=== PATIENT | male | born 1965 | race Caucasian/White ===

== ENCOUNTER 2018-04-03 10:39 | Inpatient (IN) | payer BC ==
[~2018-04-03] VITALS: Ht 185.4 cm; Wt 131.5 kg
--- NOTE | 2018-04-03 10:45 | NUR ---
PT AMBULATES TO BED 11
[2018-04-03 10:50] VITALS: BP 177/93
--- NOTE | 2018-04-03 11:00 | NUR ---
c/o intermittent right arm pain/numbness and sob x 2 wks adds dizziness upon getting up. DENIES N/V/D; SKIN IS PINK/WARM/DRY; AAOX4 WITH EVEN AND STEADY GAIT; LUNGS CLEAR BL; HR EVEN AND REGULAR; PT DENIES ANY FEVER, CP, SOB, OR COUGH AT THIS TIME; PATIENT STATES PAIN OF 0/10 AT THIS TIME; VSS; PATIENT POSITIONED FOR COMFORT; HOB ELEVATED; BEDRAILS UP X2; BED DOWN. ER MD MADE AWARE OF PT STATUS. family at bedside.
[2018-04-03] MEDS ORDERED: NACL 0.9% 1,000 ML IV SCH (11:33)
[2018-04-03 12:20] LABS: BASOPHILS # (AUTO) 0.1 K/uL (0.00-0.22); BASOPHILS % (AUTO) 0.8 % (0.0-2.0); EOSINOPHILS # (AUTO) 0.1 K/uL (0-0.4); EOSINOPHILS % (AUTO) 2.3 % (0.0-4.0); HEMATOCRIT 45.1 % (36-52); HEMOGLOBIN 15.6 g/dL (12.0-18.0); LYMPHOCYTES # (AUTO) 1.8 K/uL (2.0-11.5); MEAN CORPUSCULAR HEMOGLOBIN 30 pg (27-31); MEAN CORPUSCULAR HGB CONC 35 g/dL (33-37); MEAN CORPUSCULAR VOLUME 85.3 fL (80-94); MONOCYTES # (AUTO) 0.4 K/uL (0.8-1.0); MONOCYTES % (AUTO) 6.9 % (1.7-9.3); NEUTROPHILS # (AUTO) 3.9 K/uL (1.8-7.7); PLATELET COUNT (AUTO) 141 K/uL (140-450); RED BLOOD CELL COUNT(AUTO) 5.28 MIL/uL (4.20-6.10); RED CELL DISTRIBUTION WIDTH 13.5 % (11.6-13.7); WHITE BLOOD COUNT (AUTO) 6.4 K/uL (4.8-10.8)
[2018-04-03 12:54] LABS: ANION GAP 11.6 (8-16); CARBON DIOXIDE 29.4 mmol/L (21-32); CHLORIDE 102 mmol/L (98-107); CREATININE 0.9 mg/dL (0.7-1.3); GFR ARICAN-AMERICAN 115 mL/min (>90); GLUCOSE 192 mg/dL (74-106); SODIUM SERUM 139 mmol/L (136-145); UREA NITROGEN, BLOOD 12 mg/dL (7-18)
[2018-04-03 12:59] LABS: ALBUMIN 3.9 g/dL (3.4-5.0); AMYLASE 27 U/L (25-115); ASPARTATE AMINOTRANSFERASE 20 U/L (15-37); LIPASE 120 U/L (73-393); MAGNESIUM 1.8 mg/dL (1.8-2.4); PROTHROMBIN TIME 10.3 secs (10.8-13.4); TOTAL BILIRUBIN 0.6 mg/dL (0.0-1.0); URIC ACID 5.2 mg/dL (2.6-7.2)
--- NOTE | 2018-04-03 13:00 | NUR ---
LUNCH TRAY SERVED TO PT, PT EAT 70 % OF FOOD. PT STATED NO NUMBNESS TO RIGHT EXTREMITIES AT THIS MOMENT.
[2018-04-03 13:06] LABS: ACETONE, SERUM NEGATIVE (NEGATIVE)
--- NOTE | 2018-04-03 14:13 | NUR ---
RECEIVED BEDSIDE REPORT FROM ER NURSE. PATIENT IS AWAKE, ALERT AND ORIENTEDX4. NO SIGNS OF DISTRESS ON ROOM AIR. SKIN IS INTACT. IV ON L HAND 20G INFUSING NS AT 80ML/HR. IV IS CLEAN, DRY AND INTACT. FALL RISK PROTOCOL IN PLACE. NO YELLOW GOWNS AT THIS TIME. PATIENT ABLE TO AMBULATE FINE BUT CC IS DIZZINESS AND DX TIA. BED IN LOW POSITION. CALL LIGHT WITHIN REACH. MRSA SWAB DONE. TELE MONITOR IN PLACE. B/P IS HIGH, RR IS HIGH. PATIENT COMPLAINS OF GETTING SOB WHEN AMBULATING. WILL CONTINUE TO MONITOR THE PATIENT.
[2018-04-03] MEDS ORDERED: LORazepam 2 MG/ML VIAL IM/IVP PRN (14:40)
[2018-04-03] MEDS ORDERED: ONDANSETRON 4 MG/2 ML VIAL IM/IVP PRN (14:40)
[2018-04-03] MEDS ORDERED: DOCUSATE SODIUM 100 MG GELCAP PO PRN (14:40)
[2018-04-03] MEDS ORDERED: ACETAMINOPHEN 325 MG TAB PO PRN (14:40)
[2018-04-03] MEDS ORDERED: ZOLPIDEM 5 MG TAB PO PRN (14:40)
--- NOTE | 2018-04-03 15:00 | NUR ---
PT RESTING IN BED, DAUGHTER AT BEDSIDE. MADE PT AWARE HE WILL BE ADMITTED TO FLOOR FOR OBSERVATION.
[2018-04-03 16:04] LABS: PHOSPHORUS 2.9 mg/dL (2.5-4.9); THYROID STIMULATING HORMONE 1.62 uIU/mL (0.34-3.74)
[2018-04-03] MEDS ORDERED: DEXTROSE 50% 50 ML SYR IVP PRN (16:10)
--- NOTE | 2018-04-03 16:10 | NUR ---
PT AWAKE, ALERT. ON ROOM AIR, NO S/S OF RESPIRATORY DISTRESS NOTED. TRANSFERRED PT TO 105 A VIA GURNEY ACCOMAPNIED WITH RN AND EMT, REPORT CHRIST TO JONNY GRANT. DAUGHTER AT BEDSIDE. ALL PERSONALE BELONGINGS WITH PT.
[2018-04-03] MEDS ORDERED: MECLIZINE 25 MG TAB PO PRN (16:15)
[2018-04-03 16:30] VITALS: BP 163/81
[2018-04-03] MEDS ORDERED: amLODIPine 5 MG TAB PO SCH (16:30)
[2018-04-03 16:40] LABS: APPEARANCE,URINE CLEAR (CLEAR); BILIRUBIN,URINE NEGATIVE (NEGATIVE); BLOOD, URINE NEGATIVE (NEGATIVE); COLOR,URINE YELLOW (YELLOW); LEUKOCYTE ESTERASE ,URINE NEGATIVE (NEGATIVE); NITRITE, URINE NEGATIVE (NEGATIVE); PH,URINE 5.5 (5.0-9.0); UGLUCOSE 3+ (NEGATIVE)
[2018-04-03 16:41] LABS: BARBITURATE, URINE NEG. ng/ml (NEG <=200); BENZODIAZEPINE, URINE NEG. ng/mL (NEG <=200); CANNABINOID, URINE NEG. ng/mL (NEG <=50); COCAINE, URINE NEG. ng/mL (NEG <=300); OPIATE, URINE NEG. ng/mL (NEG <=2000); PHENCYCLIDINE SCREEN,URINE NEG. ng/mL (NEG <=25)
[2018-04-03] MEDS: NACL 0.9% 1,000 ML IV SCH (17:23)
[2018-04-03] MEDS: BLOOD GLUCOSE MONITORING 1 DEV DEV FS SCH ×2 (17:31→20:18)
--- NOTE | 2018-04-03 17:35 | NUR ---
ADMINISTERED MEDS. PATIENT HAS NO COMPLAINTS AT THIS TIME. IV IS CLEAN, DRY AND INTACT. BED IN LOW POSITION. CALL LIGHT WITHIN REACH.
[2018-04-03] MEDS: INSULIN LISPRO SLIDING SCALE 100 UNITS/ML VIAL SUBQ PRN (17:37)
--- NOTE | 2018-04-03 19:30 | NUR ---
GAVE BEDSIDE REPORT TO CREW SUPERVISOR NURSE. PATIENT ENDORSED IN STABLE CONDITION. CREW SUPERVISOR NURSE TO DO THE ORTHOSTATIC VITALS.
--- NOTE | 2018-04-03 19:31 | NUR ---
RECEIVED REPORT FROM DAY SHIFT RN FOR CONTINUITY OF CARE. PT IS A/OX4, ON ROOM AIR. PT IS ABLE TO MAKE NEEDS KNOWN, ABLE TO FOLLOW COMMANDS. RESPIRATIONS EVEN AND UNLABORED AT THE MOMENT. PT SKIN IS INTACT. PT HAS 20G IV TO LEFT HAND, ASYMPTOMATIC, INTACT AND PATENT. DISCUSSED PLAN OF CARE WITH PT AND FAMILY, FAMILY VERBALIZED UNDERSTANDING. BLOOD PRESSURE HIGH, SPOKE TO DR SHERMAN ABOUT IT AND HE WILL ORDER MEDICATION FOR IT. OTHER VITAL SIGNS WITHIN NORMAL LIMITS. PT STABLE, NO SIGNS OF DISTRESS NOTED AT THIS TIME. BED IN LOWEST POSITION, BED ALARM ON. CALL LIGHT WITHIN REACH, WILL CONTINUE TO MONITOR.
[2018-04-03] MEDS ORDERED: amLODIPine 5 MG TAB PO ONE (19:55)
[2018-04-03 20:00] VITALS: BP 169/91
[2018-04-03 20:01] VITALS: BP 175/98
[2018-04-03 20:02] VITALS: BP 194/82
[2018-04-03] MEDS: hydrALAZINE 20 MG/ML VIAL IVP PRN (20:17)
--- NOTE | 2018-04-03 20:18 | NUR ---
SPOKE TO DR SHERMAN ABOUT PT BLOOD PRESSURE. ORDERED HYDRALAZINE PRN FOR SBP ABOVE 160. ADMINISTERED 5MG OF HYDRALAZINE, PT TOLERATED WELL. PT BLOOD SUGAR IS 193 BUT PT REFUSES INSULIN COVERAGE DUE TO JUST HAVING DINNER AND ALSO BECAUSE PT HAD INSULIN EARLIER.
--- NOTE | 2018-04-03 22:20 | NUR ---
PT WANTING TO LEAVE AMA. DR SHERMAN SPOKE TO PT AND PT SAID HE DECIDED TO STAY FOR NOW. PT STATES HE IS UNSURE IF HE WILL LEAVE OR STAY BUT HE SAID "I PROMISE I WILL NOT LEAVE WITHOUT TELLING YOU AND SIGNING THE AMA PAPER."
[2018-04-04] VITALS: BP 155/91
--- NOTE | 2018-04-04 | NUR ---
VITAL SIGNS WITHIN NORMAL LIMITS. PT STABLE, NO SIGNS OF DISTRESS NOTED AT THIS TIME. BED IN LOWEST POSITION, BED ALARM ON. CALL LIGHT WITHIN REACH, WILL CONTINUE TO MONITOR.
--- NOTE | 2018-04-04 02:44 | NUR ---
PT RESTING, STABLE, NO SIGNS OF DISTRESS NOTED AT THIS TIME. BED IN LOWEST POSITION, BED ALARM ON. CALL LIGHT WITHIN REACH, WILL CONTINUE TO MONITOR.
[2018-04-04 04:00] VITALS: BP 130/72
--- NOTE | 2018-04-04 06:15 | NUR ---
PT REFUSED INSULIN COVERAGE, BS 164.
[2018-04-04 07:11] LABS: EOSINOPHILS # (AUTO) 0.1 K/uL (0-0.4); EOSINOPHILS % (AUTO) 0.9 % (0.0-4.0); HEMATOCRIT 43.2 % (36-52); LYMPHOCYTES # (AUTO) 1.4 K/uL (2.0-11.5); LYMPHOCYTES % (AUTO) 19.4 % (20.5-51.1); MEAN CORPUSCULAR HEMOGLOBIN 30 pg (27-31); MEAN CORPUSCULAR HGB CONC 35 g/dL (33-37); MEAN CORPUSCULAR VOLUME 85.6 fL (80-94); MONOCYTES # (AUTO) 1.7 K/uL (0.8-1.0); MONOCYTES % (AUTO) 23.1 % (1.7-9.3); NEUTROPHILS # (AUTO) 4.1 K/uL (1.8-7.7); NEUTROPHILS % (AUTO) 56.6 % (42.2-75.2); PLATELET COUNT (AUTO) 135 K/uL (140-450); RED BLOOD CELL COUNT(AUTO) 5.04 MIL/uL (4.20-6.10); RED CELL DISTRIBUTION WIDTH 13.6 % (11.6-13.7); WHITE BLOOD COUNT (AUTO) 7.3 K/uL (4.8-10.8)
--- NOTE | 2018-04-04 07:24 | NUR ---
ENDORSED PT TO DAY SHIFT RN FOR CONTINUITY OF CARE. PT IN STABLE CONDITION.
--- NOTE | 2018-04-04 07:25 | NUR ---
RECEIVED REPORT FROM ROCKET MOTOR MECHANIC NURSE NORMA AT BEDSIDE FOR CONTINUITY OF CARE. PT IS AWAKE AND ORIENTED X4. INTRODUCED SELF AND UPDATED BOARD. PT DENIES PAIN. NO VISUAL DISTURBANCES REPORTED BY PT. LUNG SOUNDS CLEAR ON AUSCULTATION. O2 SAT 96% ON RA. NO SOB, NO COUGH. SKIN INTACT. IV TO L HAND 20G WITH NS AT 20ML/HR. PT UP AND EATING BREAKFAST. CALL LIGHT WITHIN REACH. BED IN LOW POSITION, WHEELS LOCKED, WILL CONTINUE TO MONITOR.
[2018-04-04] MEDS: BLOOD GLUCOSE MONITORING 1 DEV DEV FS SCH ×4 (07:31→21:06)
[2018-04-04 07:54] LABS: MAGNESIUM 2.1 mg/dL (1.8-2.4); PHOSPHORUS 3.2 mg/dL (2.5-4.9)
[2018-04-04 07:55] LABS: ANION GAP 14.1 (8-16); CARBON DIOXIDE 27.5 mmol/L (21-32); CREATININE 0.7 mg/dL (0.7-1.3); POTASSIUM 3.6 mmol/L (3.5-5.1)
[2018-04-04 08:00] VITALS: BP 152/82
[2018-04-04 08:22] LABS: T4 (THYROXINE) 5.5 ug/dL (4.5-12.0)
--- NOTE | 2018-04-04 09:15 | NUR ---
REPORTED TO DR. ADORNO PT ON TELE CONVERTED TO A FIB. ORDERED EKG. PT AWAKE AND NO COMPLAINTS AT THIS TIME.
[2018-04-04 09:26] LABS: CHOL/HDL RATIO 4.9 (1-4.5)
[2018-04-04] MEDS: amLODIPine 5 MG TAB PO SCH (10:00)
[2018-04-04] MEDS: INSULIN LANTUS 100 UNITS/ML 10 ML VIAL SUBQ SCH (10:05)
--- NOTE | 2018-04-04 10:05 | NUR ---
ADMINISTERED SCHEDULED MEDS. EDUCATED PT ON BP MONITORING AND CONTROL WITH MEDS AND GLYCEMIC CONTROL WITH LANTUS. PT VERBALIZED UNDERSTANDING AND TOLERATED MEDS WELL. PT'S AT BEDSIDE. PT DENIES PAIN. ASKED IF PT NEEDED ANYTHING. PT STATED "NO." CALL LIGHT WITHIN REACH. WILL CONTINUE TO MONITOR.
--- NOTE | 2018-04-04 10:42 | NUR ---
PATIENT HAS BEEN SCREENED AND CATEGORIZED HIGH NUTRITION RISK. PATIENT WILL BE SEEN WITHIN 1-2 DAYS OF ADMISSION. 04/04/18 04/05/[address]
--- NOTE | 2018-04-04 11:36 | NUR ---
CM NOTE PER BYERS SMASHER HAND JULIÁN, PATIENT HAS [facility] AND REVIEWS SHOULD ONLY BE SENT TO [facility]. CALLED VIDHI OF [facility] PH# [phone] TO CONFIRM AND INFORMED REGTX OF THE ORDER FOR MRI OF BRAIN. PER VIDHI, THERE IS NO ASSIGNED CM AT THIS TIME BUT TO SEND REVIEWS TO [facility] FAX# [phone]. INITIAL REVIEW AND ORDER FOR MRI OF BRAIN FAXED TO [facility] FAX# [phone].
[2018-04-04] MEDS: INSULIN LISPRO SLIDING SCALE 100 UNITS/ML VIAL SUBQ PRN (11:59)
[2018-04-04 12:00] VITALS: BP 154/80
--- NOTE | 2018-04-04 12:20 | NUR ---
CALLED DR. ADORNO REGARDING MRI ORDER BECAUSE CANNOT BE DONE HERE. SAID PLANNING TO TRANSFER PT FOR MRI. SPOKE WITH RADIOLOGY AND INFORMED THEM.
--- NOTE | 2018-04-04 13:26 | NUR ---
CM NOTE CALLED [facility] TO FOLLOW UP ON THE ASSIGNED CM AND ORDER FOR MRI OF BRAIN. PER ARLEEN OF [facility]# [phone], CASE HAS NOT BEEN OPENED YET AND TO CALL AGAIN AT A LATER TIME TO FOLLOW UP. I INFORMED HER THAT I AM FOLLOWING UP ON THE ORDER FOR MRI OF THE BRAIN. CALLED CHRISTIE OF [facility]# [phone] WHO STATED THAT SHE DOES NOT KNOW WHO THE ASSIGNED CM YET AT THIS TIME BUT TO CALL [facility] ANSWERING SERVICE # [phone]. CALLED [facility] ANSWERING SERVICE # [phone] AND SPOKE WITH GILDARDO WHO SAID THEY WILL TRANSFER PATIENT TO ONE OF THEIR CONTRACTED FACILITIES. I GAVE HER THE NUMBER TO THE NURSING STATION WHERE PATIENT IS IN CASE IT HAPPENS AT A LATER TIME. CHARGE NURSE HARJIT AND DR. KYREE MORILLO.
--- NOTE | 2018-04-04 14:21 | NUR ---
CM NOTE PER DR. ADORNO, PATIENT WAS INFORMED THAT HIS INSURANCE WANTS HIM TO BE TRANSFERRED TO ONE OF THEIR CONTRACTED FACILITIES AND PATIENT IS AGREEABLE. SPOKE WITH PAO FINLEY PH# [phone] AND SHE SAID SHE IS ARRANGING THE TRANSPORTATION AND TRANSFER OF PATIENT TO ONE OF THEIR CONTRACTED FACILITIES. PER JOE, SHE IS STILL LOOKING FOR A BED IN ONE OF THEIR CONTRACTED FACILITIES WHERE THEY HAVE A NEUROLOGIST INCLUDING [facility]. SHE CONFIRMED THAT SHE HAS RECEIVED THE CLINICAL UPDATES ON THE PATIENT. I GAVE MALIA THE NUMBER FOR DOCTOR TO DOCTOR REPORT AND THE NUMBER TO THE NURSING STATION WHERE PATIENT IS IN CASE THE TRANSFER HAPPENS AT A LATER TIME. CHARGE NURSE HARJIT AND DR. ADORNO AWARE.
[2018-04-04] MEDS: NACL 0.9% 1,000 ML IV SCH (15:00)
[2018-04-04 16:00] VITALS: BP 150/80
--- NOTE | 2018-04-04 16:50 | NUR ---
SPOKE WITH PT AND TRANSFER CAR OPERATOR DRIER FROM [facility] ON PHONE REGARDING TRANSFER. TOLD THEM WAITING ON BED FROM FACILITY AND WILL LET PT KNOW ONCE TRANSFER IS SET UP.
--- NOTE | 2018-04-04 19:30 | NUR ---
ENDORSED PT TO GRINDER NEEDLE TIP NURSE NORMA AT BEDSIDE FOR CONTINUITY OF CARE. PT IN STABLE CONDITION.
[2018-04-04 20:00] VITALS: BP 125/73
--- NOTE | 2018-04-04 21:07 | NUR ---
PT BLOOD SUGAR IS 253, BUT PT REFUSES INSULIN COVERAGE BECAUSE PT STATES HE JUST HAD DINNER AND HE HAD TAKEN INSULIN TWICE BEFORE TODAY AND HE DOES NOT NORMALLY TAKE INSULIN.
--- NOTE | 2018-04-04 21:20 | NUR ---
ALBACORE FISHING BOAT CREWMAN ANGELES FROM [facility] CALLED TO LET US KNOW THEY ARE MOVING THINGS AROUND TO TRY TO GET A BED FOR PT. HE SAID THERE IS A CHANCE PT MIGHT BE TRANSFERRED TODAY AND WANTED TO KNOW IF PT IS ON TELE MONITOR AND IF PT NEEDED BLS OR ACLS TRANSPORT. ANGELES ALSO SAID TO MAKE SURE DISCHARGE ORDER INCLUDED "TRANSFER TO HIGHER LEVEL OF CARE FOR MRI" OR " OK TO TRANSFER TO ,CONTRACTED FACILITY."
--- NOTE | 2018-04-04 21:51 | NUR ---
OBTAINED ORDER FOR PT TO SHOWER PER PT REQUEST. PT IS NOW IN SHOWER.
--- NOTE | 2018-04-04 22:23 | NUR ---
ANGELES FROM [facility] CALLED AGAIN. TURNS OUT PT IS NOT WITH [facility], PT IS WITH [facility]. MAP DRAFTER SHOULD FOLLOW UP TOMORROW MORNING.
[2018-04-05] VITALS: BP 139/77
--- NOTE | 2018-04-05 | NUR ---
VITAL SIGNS WITHIN NORMAL LIMITS. PT STABLE, NO SIGNS OF DISTRESS NOTED AT THIS TIME. BED IN LOWEST POSITION, BED ALARM ON. CALL LIGHT WITHIN REACH, WILL CONTINUE TO MONITOR
--- NOTE | 2018-04-05 02:21 | NUR ---
PT STABLE, NO SIGNS OF DISTRESS NOTED AT THIS TIME. BED IN LOWEST POSITION, BED ALARM ON. CALL LIGHT WITHIN REACH, WILL CONTINUE TO MONITOR.
[2018-04-05 04:00] VITALS: BP 148/86
[2018-04-05] MEDS: BLOOD GLUCOSE MONITORING 1 DEV DEV FS SCH ×3 (06:36→16:47)
--- NOTE | 2018-04-05 06:36 | NUR ---
PT REFUSED INSULIN FOR BS 178.
--- NOTE | 2018-04-05 07:27 | NUR ---
RECEIVED REPORT FROM NIGHTSHIFT NURSE AT BEDSIDE. PATIENT IS ASLEEP AT THIS TIME IN LEFT LATERAL POSITION. PATIENT AROUSABLE TO NAME. RESPIRATIONS ARE EVEN AND UNLABORED. NO SIGNS OF PAIN AT THIS TIME. PATIENT HAS NO IV ACCESS. LOWERED BED OF PATIENT TO LOWEST SETTING. CALL LIGHT WITHIN REACH OF PATIENT. UPDATED BOARD IN PATIENT'S ROOM. WILL CONTINUE TO MONITOR PATIENT.
--- NOTE | 2018-04-05 07:27 | NUR ---
ENDORSED PT TO DAY SHIFT RN FOR CONTINUITY OF CARE. PT IS IN STABLE CONDITION.
[2018-04-05 07:38] LABS: BASOPHILS % (AUTO) 0.6 % (0.0-2.0); EOSINOPHILS # (AUTO) 0.1 K/uL (0-0.4); EOSINOPHILS % (AUTO) 1.9 % (0.0-4.0); HEMATOCRIT 44.2 % (36-52); HEMOGLOBIN 15.2 g/dL (12.0-18.0); LYMPHOCYTES # (AUTO) 1.9 K/uL (2.0-11.5); LYMPHOCYTES % (AUTO) 31.9 % (20.5-51.1); MEAN CORPUSCULAR HEMOGLOBIN 30 pg (27-31); MEAN CORPUSCULAR HGB CONC 35 g/dL (33-37); MEAN CORPUSCULAR VOLUME 85.7 fL (80-94); MONOCYTES # (AUTO) 0.4 K/uL (0.8-1.0); MONOCYTES % (AUTO) 7.4 % (1.7-9.3); NEUTROPHILS # (AUTO) 3.5 K/uL (1.8-7.7); NEUTROPHILS % (AUTO) 58.2 % (42.2-75.2); PLATELET COUNT (AUTO) 135 K/uL (140-450); RED BLOOD CELL COUNT(AUTO) 5.15 MIL/uL (4.20-6.10); RED CELL DISTRIBUTION WIDTH 13.6 % (11.6-13.7)
[2018-04-05 08:14] LABS: ANION GAP 10.1 (8-16); CARBON DIOXIDE 29.5 mmol/L (21-32); CREATININE 0.7 mg/dL (0.7-1.3); POTASSIUM 3.6 mmol/L (3.5-5.1)
[2018-04-05 08:40] LABS: MAGNESIUM 2.2 mg/dL (1.8-2.4); PHOSPHORUS 4.1 mg/dL (2.5-4.9)
[2018-04-05 08:55] VITALS: BP 160/80
[2018-04-05] MEDS: amLODIPine 5 MG TAB PO SCH (08:57)
[2018-04-05] MEDS: INSULIN LANTUS 100 UNITS/ML 10 ML VIAL SUBQ SCH (09:01)
--- NOTE | 2018-04-05 09:01 | NUR ---
PATIENT TOOK AM MEDICATIONS. PATIENT TOLERATED WELL.
--- NOTE | 2018-04-05 10:59 | NUR ---
PAO NOTE PER GILDARDO OF [facility] ANSWERING SERVICE PH# [phone] THEY WILL HAVE TO CHECK PATIENT'S INSURANCE AGAIN TO CONFIRM IF PATIENT IS THEIRS. PER CALEDONIA SECURITY EXPERT ROSA, SHE MADE CALLS AND CONFIRMED THAT PATIENT HAS INSURANCE UNDER [facility]. RECEIVED CALL FROM PAO HENRY OF [facility]# [phone] WHO STATED THAT SHE STILL HAS TO REVIEW PATIENT'S CASE. INFORMED HER THAT PER DOCTOR, PATIENT STILL NEEDS MRI OF THE BRAIN AND WE HAVE AN ORDER TO SEND PATIENT [place] [facility] [place]. PER PAO HENRY SHE HAS TO RUN IT BY HER AQUATICS DIRECTOR IF THAT CAN BE DONE OTHERWISE SHE WILL LOOK FOR A BED IN THEIR CONTRACTED FACILITY. SPOKE WITH [facility] PAO CARL PH# [phone] TO FOLLOW UP AND SHE STATED THAT PATIENT CANNOT BE SENT TO [facility] [place] BECAUSE PATIENT'S INSURANCE DOESN'T HAVE CONTRACT WITH [facility]. PER IGLESIA HENRY, SHE IS WORKING ON PATIENT'S TRANSFER TO THEIR CONTRACTED FACILITY AND THAT PATIENT HAS BEEN ACCEPTED AT [facility] BUT THEY ARE STILL WAITING FOR BED AVAILABILITY. DR. ADORNO AWARE AND CHARGE NURSE IDRIS AWARE. Addendum: 04/05/18 at 1123 by Kyra Rivers CM FAXED PROGRESS NOTES TO [facility] [phone] AND GAVE IGLESIA HENRY A VERBAL CLINICAL UPDATE ON THE PATIENT. PER IGLESIA HENRY, THEY ARE LOOKING INTO GETTING A BED AT [facility] TODAY. I ALSO GAVE HER THE NUMBER TO THE NURSING STATION WHERE PATIENT IS IN CASE BED IS AVAILABLE AT A LATER TIME
[2018-04-05] MEDS: hydrALAZINE 20 MG/ML VIAL IVP PRN (11:39)
--- NOTE | 2018-04-05 11:39 | NUR ---
GAVE PATIENT HYDRALAZINE BECAUSE OF SYSTOLIC BLOOD PRESSURE OVER 160. WILL CONTINUE TO MONITOR PATIENT.
[2018-04-05] MEDS: INSULIN LISPRO SLIDING SCALE 100 UNITS/ML VIAL SUBQ PRN ×2 (11:43→16:51)
[2018-04-05 12:00] VITALS: BP 153/88
--- NOTE | 2018-04-05 13:00 | NUR ---
BLOOD PRESSURE IS AT 164/82, [address] ADORNO AWARE. PATIENT IS ASYMPTOMATIC. WILL CONTINUE TO MONITOR PATIENT.
[2018-04-05] MEDS ORDERED: LISINOPRIL 10 MG TAB PO SCH (13:15)
--- NOTE | 2018-04-05 13:26 | NUR ---
GAVE LISINOPRIL TO PATIENT. WILL REASSESS BLOOD PRESSURE. PATIENT STATES, "THIS ALWAYS HAPPENS. IT IS HARD FOR MY BLOOD PRESSURE TO GO DOWN". PATIENT IS ASYMPTOMATIC. WILL CONTINUE TO MONITOR PATIENT.
--- NOTE | 2018-04-05 14:14 | NUR ---
[facility]O SOLIS [facility]# [phone] TO FOLLOW UP ON THE TRANSFER TO CONTRACTED FACILITY AND MRI OF THE BRAIN. PER PAO HENRY, SHE IS STILL WORKING ON THE TRANSFER TO THEIR CONTRACTED FACILITY AND THEIR JOURNEYMAN PAINTER WANTS TO TALK TO THE ATTENDING PHYSICIAN. DR. ADORNO AWARE. Addendum: 04/05/18 at 1440 by Kyra Rivers CM CONCURRENT REVIEW FAXED TO [facility] [phone] PAO HENRY PH# [phone]
--- NOTE | 2018-04-05 15:00 | NUR ---
PATIENT RESTING AT THIS TIME. NO DISTRESS NOTED. WILL CONTINUE TO MONITOR PATIENT.
--- NOTE | 2018-04-05 15:56 | NUR ---
SPOKE TO CARL GARDNER. PER CARL, PATIENT WILL BE GETTING AN MRI DONE AT 9:45 AM ON 04/05/18 TOMORROW. PATIENT WILL FOLLOW UP WITH [facility] ON 04/07 AT 15:45. PATIENT WILL BE GETTING IMAGES DONE AT [facility]. ADDRESS IS [id number] [address] PHONE NUMBER IS [phone]. FAXED OVER PATIENT'S BUN AND CREATININE PER IMAGE CENTER'S REQUEST. FAX NUMBER IS [phone]. Addendum: 04/05/18 at 1646 by Carlitos Ricardo II, RN MRI WILL BE DONE ON 04/06/18 TOMORROW. [facility] DOES NOT HAVE AVAILABILITY FOR TOMORROW. PATIENT WILL BE GOING TO [facility]. AD[address]ESS IS [id number], [place] [address]. PHONE NUMBER IS [phone]. MRA IS SCHEDULED AT THIS LOCATION WELL ON 04/07 AT 15:45.
[2018-04-05 16:00] VITALS: BP 144/86
[2018-04-05] MEDS ORDERED: LISI10TA11 PO (16:06)
[2018-04-05] MEDS ORDERED: AMLO5TAB PO (16:06)
[2018-04-05] MEDS ORDERED: METF500T PO (16:07)
--- NOTE | 2018-04-05 16:10 | NUR ---
04/05/18 RD INITIAL ASSESSMENT COMPLETED PLEASE REFER TO NUTRITION ASSESSMENT UNDER CARE ACTIVITY FOR ESTIMATED NUTRITIONAL NEEDS. 1. RECOMMEND LOW-SODIUM, CCHO 60 GM DIET TOLERATED 2. PROVIDED DIABETES NUTRITION EDUCATION 3. RD TO FOLLOW-UP 3-5 DAYS, MODERATE RISK SHANNAN MALLORY RD
[2018-04-05] MEDS ORDERED: NICO1PAT16 TD (16:26)
--- NOTE | 2018-04-05 18:50 | NUR ---
PATIENT SIGNED ALL DISCHARGE INSTRUCTIONS. PATIENT AWARE OF DIAGNOSTIC APPOINTMENTS TOMORROW AND THE DAY AFTER TOMORROW. PATIENT AWARE OF PRESCRIPTIONS AND UNDERSTANDS DISCHARGE INSTRUCTIONS. REMOVED PATIENT'S IV LINE WITH CATHETER STILL INTACT. REMOVED PATIENT'S IDENTIFICATION BANDS. PATIENT LEFT WITH ALL BELONGINGS VIA WHEELCHAIR IN STABLE CONDITION.
--- NOTE | 2018-04-06 08:10 | NUR ---
FAXED DISCHARGE SUMMARY TO [facility] [phone]
[2018-04-06] MEDS ORDERED: LISINOPRIL 10 MG TAB PO SCH ×2 (09:00)
== END 2018-04-05 18:50 | disposition home or self-care (01) | DRG 69 ==
LOC: MED 10:39 → MTU 14:44
PROVIDERS: ADMIT General Practice; ATTEND General Practice
DX: G45.9 Transient cerebral ischemic attack, unspecified (principal); I50.43 Acute on chronic combined systolic (congestive) and diastolic (congestive) heart failure; G45.3 Amaurosis fugax; D68.59 Other primary thrombophilia; F17.210 Nicotine dependence, cigarettes, uncomplicated; E11.65 Type 2 diabetes mellitus with hyperglycemia; E66.01 Morbid (severe) obesity due to excess calories; E11.69 Type 2 diabetes mellitus with other specified complication; I11.0 Hypertensive heart disease with heart failure; E78.5 Hyperlipidemia, unspecified; E86.0 Dehydration; Z68.38 Body mass index [BMI] 38.0-38.9, adult; Z82.49 Family history of ischemic heart disease and other diseases of the circulatory system; Z71.6 Tobacco abuse counseling
CPT/HCPCS: 36415; 70450; 71045; 80048; 80053; 80305; 81003; 82009; 82150; 82948; 83036; 83690; 83735; 83880; 84100; 84134; 84436; 84443; 84484; 84550; 85025; 85610; 85730; 87081; 93005; 93880; 93925; 93970; 96360; 97161-GP; 99285; C1758; J0360; J1815; J7030; Q0092

== ENCOUNTER 2023-03-11 08:38 | Inpatient (IN) | payer BC ==
[~2023-03-11] VITALS: Ht 185.4 cm; Wt 113.4 kg
[~2023-03-11 08:38] MED LIST: AMLO5TAB PO; LISI10TA30 PO; METF-346 PO; NICO1PAT16 TD
[2023-03-11 08:49] VITALS: BP 167/116; PULSE 89; RESP 20; TEMP 97.8; O2SAT 97
[2023-03-11 09:42] LABS: BASOPHILS % (AUTO) 0.5 % (0.0-2.0); EOSINOPHILS # (AUTO) 0.1 K/uL (0-0.4); EOSINOPHILS % (AUTO) 0.8 % (0.0-4.0); HEMATOCRIT 42.3 % (36-52); HEMOGLOBIN 14.9 g/dL (12.0-18.0); LYMPHOCYTES # (AUTO) 1.5 K/uL (2.0-11.5); LYMPHOCYTES % (AUTO) 15.8 % (20.5-51.1); MEAN CORPUSCULAR HEMOGLOBIN 30 pg (27-31); MEAN CORPUSCULAR HGB CONC 35 g/dL (33-37); MEAN CORPUSCULAR VOLUME 84.8 fL (80-94); MONOCYTES # (AUTO) 0.9 K/uL (0.8-1.0); MONOCYTES % (AUTO) 9.5 % (1.7-9.3); NEUTROPHILS # (AUTO) 6.9 K/uL (1.8-7.7); NEUTROPHILS % (AUTO) 73.4 % (42.2-75.2); PLATELET COUNT (AUTO) 143 K/uL (140-450); RED BLOOD CELL COUNT(AUTO) 4.99 MIL/uL (4.20-6.10); RED CELL DISTRIBUTION WIDTH 13.8 % (11.6-13.7); WHITE BLOOD COUNT (AUTO) 9.5 K/uL (4.8-10.8)
[2023-03-11 09:51] LABS: PROTHROMBIN TIME 10.3 secs (10.8-13.4)
[2023-03-11 09:53] LABS: ALBUMIN 3.7 g/dL (3.4-5.0); ANION GAP 10.9 (8-16); CARBON DIOXIDE 29.7 mmol/L (21-32); POTASSIUM 3.6 mmol/L (3.5-5.1); TOTAL BILIRUBIN 1.5 mg/dL (0.0-1.0)
[2023-03-11 10:13] LABS: THYROID STIMULATING HORMONE 2.06 uIU/mL (0.34-3.74)
[2023-03-11] MEDS: FUROSEMIDE 20 MG/2 ML VIAL IVP ONE (12:00)
[2023-03-11 13:45] VITALS: RESP 16; O2SAT 96
[2023-03-11 16:00] VITALS: BP 139/94; PULSE 104; PULSE 87; RESP 20; TEMP 98.4; O2SAT 98
[2023-03-11 20:00] VITALS: PULSE 104
[2023-03-11] MEDS ORDERED: METOPROLOL 25 MG TAB PO SCH (21:00)
[2023-03-11] MEDS ORDERED: metFORMIN 500 MG TAB PO SCH (21:00)
[2023-03-11] MEDS ORDERED: APIXABAN 2.5 MG TAB PO SCH (21:00)
[2023-03-12] MEDS ORDERED: amLODIPine 5 MG TAB PO SCH (09:00)
[2023-03-12] MEDS ORDERED: FUROSEMIDE 40 MG/4 ML VIAL IVP SCH (09:00)
[2023-03-12] MEDS ORDERED: NICOTINE TRANSD SYS 14 MG/24 HR PATCH TD SCH (09:00)
[2023-03-12] MEDS ORDERED: ATORVASTATIN 20 MG TAB PO SCH (09:00)
[2023-03-12] MEDS ORDERED: lisinopriL 10 MG TAB PO SCH (09:00)
== END 2023-03-11 21:00 | disposition left against medical advice (07) | DRG 310 ==
LOC: MED 08:38 → MTU 13:16
DX: I48.91 Unspecified atrial fibrillation (principal); E11.9 Type 2 diabetes mellitus without complications; E78.5 Hyperlipidemia, unspecified; I11.0 Hypertensive heart disease with heart failure; Z53.29 Procedure and treatment not carried out because of patient's decision for other reasons; I50.9 Heart failure, unspecified; Z82.49 Family history of ischemic heart disease and other diseases of the circulatory system; Z79.01 Long term (current) use of anticoagulants
CPT/HCPCS: 36415; 71045; 80053; 83880; 84443; 84484; 85025; 85610; 85730; 87081; 93970; J1940; Q0092

== ENCOUNTER 2024-02-17 19:41 | Emergency (ER) | payer BC ==
[~2024-02-17] VITALS: Ht 188 cm; Wt 127.0 kg
[2024-02-17 19:57] VITALS: BP 127/103; PULSE 114; RESP 16; TEMP 100.9; O2SAT 99
[2024-02-17] MEDS ORDERED: ACETAMINOPHEN 325 MG TAB ONE (20:07)
[2024-02-17] MEDS: ACETAMINOPHEN 325 MG TAB PO ONE (20:10)
[2024-02-17] MEDS: NACL 0.9% 1,000 ML IV ONE (20:17)
[2024-02-17] MEDS ORDERED: METO25TE2 PO (20:20)
[2024-02-17] MEDS ORDERED: METF-346 PO (20:20)
[2024-02-17] MEDS ORDERED: FURO-572 PO (20:20)
[2024-02-17] MEDS ORDERED: ATOR40TA PO (20:20)
[2024-02-17 20:32] LABS: BASOPHILS # (AUTO) 0.1 K/uL (0.00-0.22); BASOPHILS % (AUTO) 0.5 % (0.0-2.0); EOSINOPHILS % (AUTO) 0.1 % (0.0-4.0); HEMATOCRIT 39.4 % (36-52); HEMOGLOBIN 13.5 g/dL (12.0-18.0); LYMPHOCYTES # (AUTO) 0.8 K/uL (2.0-11.5); LYMPHOCYTES % (AUTO) 6.6 % (20.5-51.1); MEAN CORPUSCULAR HEMOGLOBIN 29 pg (27-31); MEAN CORPUSCULAR HGB CONC 34 g/dL (33-37); MONOCYTES # (AUTO) 1.1 K/uL (0.8-1.0); MONOCYTES % (AUTO) 8.9 % (1.7-9.3); NEUTROPHILS # (AUTO) 10.1 K/uL (1.8-7.7); NEUTROPHILS % (AUTO) 83.9 % (42.2-75.2); PLATELET COUNT (AUTO) 116 K/uL (140-450); RED BLOOD CELL COUNT(AUTO) 4.69 MIL/uL (4.20-6.10); WHITE BLOOD COUNT (AUTO) 12.1 K/uL (4.8-10.8)
[2024-02-17 20:43] LABS: ANION GAP 12.6 (8-16); CALCIUM 8.5 mg/dL (8.5-10.1); CARBON DIOXIDE 28.1 mmol/L (21-32); CREATININE 1.2 mg/dL (0.6-1.3); POTASSIUM 3.7 mmol/L (3.5-5.1)
[2024-02-17 20:52] LABS: LACTIC ACID 1.6 mmol/L (0.4-2.0)
[2024-02-17 20:56] LABS: INR 1.23 (0.8-1.2); PROTHROMBIN TIME 12.8 secs (10.8-13.4)
[2024-02-17 21:02] LABS: ACETONE, SERUM Negative (NEGATIVE)
[2024-02-17] MEDS ORDERED: VANCOMYCIN 1,000 MG VIAL ONE ×2 (21:26→21:31)
[2024-02-17] MEDS: VANCOMYCIN 1,000 MG in DEXTROSE 5% 250 ML IV ONE (21:26)
[2024-02-17] MEDS ORDERED: CEPH-588 PO (21:57)
[2024-02-17 22:56] VITALS: BP 122/82; PULSE 88; RESP 16; TEMP 98.2; O2SAT 99
== END 2024-02-17 22:56 | disposition home or self-care (01) ==
LOC: MED 19:41
DX: L03.116 Cellulitis of left lower limb (principal); E11.9 Type 2 diabetes mellitus without complications; I10 Essential (primary) hypertension; Z86.73 Personal history of transient ischemic attack (TIA), and cerebral infarction without residual deficits; Z79.4 Long term (current) use of insulin; Z79.899 Other long term (current) drug therapy
CPT/HCPCS: 36415; 80048; 82009; 83605; 83880; 84484; 85025; 85610; 85730; 87040; 93005; 93971; 96361; 96365; 99285; J3370; J7030